=== PATIENT | male | born 1935 | race African-American/Black ===

== ENCOUNTER → 2016-12-27 | Outpatient (CLI) | payer MEDICARE, OTHER ==
[2016-12-27 11:28] LABS: ALBUMIN 3.3 g/dL (3.4-5.0); CALCIUM 8.7 mg/dL (8.5-10.1); CREATININE 1.4 mg/dL (0.7-1.3); GFR 58.6; PHOSPHORUS 3.6 mg/dL (2.6-4.7); POTASSIUM 3.6 mmol/L (3.5-5.1)
[2016-12-27 11:50] LABS: BILIRUBIN,URINE NEG (NEG); CLARITY,URINE CLEAR; COLOR,URINE YELLOW; GLUCOSE,URINE NEG (NEG); NITRITE,URINE NEG (NEG); UROBILINOGEN,URINE 1 mg/dL (0.2 mg/dL)
[2016-12-27 11:51] LABS: BACTERIA,URINE 0 /HPF (0-FEW); SQUAMOUS EPITHELIAL CELL,UR OCC /LPF; WBC,URINE OCC /HPF (0-4)
--- NOTE | 2016-12-27 16:16 | RAD ---
Renal ultrasound 12/27/2016 Clinical history: Abnormal renal function tests. Technique: A real-time ultrasound examination of both kidneys and the urinary bladder was performed. Multiple images were obtained. Findings: Both kidneys are within normal limits in size and echogenicity. The right kidney measures 10.2 cm in length. The left kidney measures 10.1 cm in length. No focal abnormality of either kidney is seen. No renal calculus is noted. There is no evidence of hydronephrosis. The urinary bladder is contracted. The patient voided just prior to the examination. The residual within the urinary bladder is estimated to be 4.7 mL. The prostate gland is enlarged likely related to BPH. It measures 4.9 x 5.7 x 4.9 cm in longitudinal, transverse and AP dimensions. Impression: The prostate gland is enlarged likely related to BPH. Otherwise negative study.
[2016-12-27 23:10] LABS: CREAT RD UR 79.5 mg/dL (Not Estab.); MICRO CREAT RATIO 22.8 mg/g creat (0.0-30.0); MICROALB RD UR 18.1 ug/mL (Not Estab.)
[2016-12-28 10:47] LABS: IRON,SERUM 73 ug/dL (65-175)
== END | disposition home or self-care (01) ==
LOC: US 10:34
PROVIDERS: ATTEND Internal Medicine Nephrology
DX: I10 Essential (primary) hypertension (principal); E11.9 Type 2 diabetes mellitus without complications; N40.0 Benign prostatic hyperplasia without lower urinary tract symptoms; I70.1 Atherosclerosis of renal artery; D64.9 Anemia, unspecified; E86.0 Dehydration; R10.10 Upper abdominal pain, unspecified; R94.4 Abnormal results of kidney function studies; Z68.25 Body mass index [BMI] 25.0-25.9, adult
CPT/HCPCS: 36415; 76770; 80069; 81001; 82043; 82570; 82607; 82728; 83540; 83550

== ENCOUNTER → 2017-11-29 | Outpatient (CLI) | payer OTHER ==
[2017-11-29 10:38] LABS: ALBUMIN 3.1 g/dL (3.4-5.0); ALBUMIN/GLOBULIN RATIO 0.8 (1.0-1.7); CALCIUM 9.1 mg/dL (8.5-10.1); CREATININE 1.3 mg/dL (0.7-1.3); GFR 63.6; POTASSIUM 3.7 mmol/L (3.5-5.1); TOTAL BILIRUBIN 0.6 mg/dL (0.2-1.0)
== END | disposition home or self-care (01) ==
LOC: LAB 09:54
PROVIDERS: ATTEND Internal Medicine Cardiovascular Disease
DX: E78.00 Pure hypercholesterolemia, unspecified (principal)
CPT/HCPCS: 36415; 80053; 80061

== ENCOUNTER → 2018-01-04 | Outpatient (CLI) | payer OTHER ==
--- NOTE | 2018-01-04 14:00 | RAD ---
Nonvascular right upper extremity ultrasound 01/04/2018 Clinical indication: Nonpainful lump posterior right wrist for 2 months. Comparison: None. Findings: Limited real-time grayscale and color Doppler images of the posterior right wrist in the area of palpable concern. There is a thin fluid collection in the deep subcutaneous tissues of the posterior right wrist with internal debris and septations with no evidence of internal vascularity measuring 4.0 x 1.5 x 0.6 cm. There is more focal debris in the dependent portion of the mass with no evidence of internal vascularity. Impression: The area of palpable concern, there is a thin fluid collection with internal debris measuring up to 4.0 cm which appears to be in the deep subcutaneous tissues. Findings may be posttraumatic or post operative fluid collection in the appropriate clinical setting. If further imaging is clinically indicated, MRI without and with contrast is recommended to exclude enhancing nodularity.
== END | disposition home or self-care (01) ==
LOC: US 10:27
PROVIDERS: ATTEND Nurse Practitioner Family
DX: R22.31 Localized swelling, mass and lump, right upper limb (principal); I10 Essential (primary) hypertension; E11.9 Type 2 diabetes mellitus without complications; E78.00 Pure hypercholesterolemia, unspecified
CPT/HCPCS: 76881

== ENCOUNTER 2020-08-02 20:13 | Emergency (ER) | payer MEDICARE, OTHER ==
[~2020-08-02] VITALS: Ht 172.7 cm; Wt 70.0 kg
--- NOTE | 2020-08-02 20:45 | PHYS DOC ---
Adult General Chief Complaint Chief Complaint: ABDOMINAL PAIN HPI HPI Patient is a 78 seizure male patient who complains of abdominal fullness. States he has a history of constipation, has not had a bowel movement for 3 days. States he is having a bit of burning in his rectum, as he has in the past when he has been constipated. States he has not had a lot of fluid intake recently, despite his telling him he needs to stay hydrated.. States he has taken stool softeners in the past, however is not taken any today. Does report a speculum something proximally 3 hours ago bowel movement last has not had any blood. Denies any nausea, denies any vomiting. Denies any prior abdo roshni surgery. Denies any change in urination, however does report he seems to have a little bit less urine compared to normal. States he has had this happen in the past before (GENA CRANDALL APRN) Review of Systems Review of Systems Constitutional: Denies fever or chills [] Eyes: Denies change in visual acuity, redness, or eye pain [] HENT: Denies nasal congestion or sore throat [] Respiratory: Denies cough or shortness of breath [] Cardiovascular: No additional information not addressed in HPI [] GI: Denies abdominal pain, nausea, vomiting, bloody stools or diarrhea does report constipation [] : Denies dysuria or hematuria [] Musculoskeletal: Denies back pain or joint pain [] Integument: Denies rash or skin lesions [] Neurologic: Denies headache, focal weakness or sensory changes [] Endocrine: Denies polyuria or polydipsia [] All other systems were reviewed and found to be within normal limits, except as documented in this note. (GENA CRANDALL APRN) Allergies Allergies Allergies Coded Allergies Type Severity Reaction Last Updated Verified No Known Drug Allergies 08/02/20 No (GENA CRANDALL APRN) Physical Exam Physical Exam Constitutional: Well developed, well nourished, no acute distress, non-toxic appearance. Conversational [] HENT: Normocephalic, atraumatic, no oral exudates, nose normal. [] Eyes: PERRLA, EOMI, conjunctiva normal, no discharge. [] Neck: Normal range of motion, no tenderness, supple, no stridor. [] Cardiovascular:Heart rate regular rhythm, no murmur [] Lungs & Thorax: Bilateral breath sounds clear to auscultation [] Abdomen: Bowel sounds diminishedl, soft, no tenderness, no masses, no pulsatile masses. [] Skin: Warm, dry, no erythema, no rash. [] Back: No tenderness, no CVA tenderness. [] Extremities: No tenderness, no cyanosis, no clubbing, ROM intact, no edema. [] Neurologic: Alert and oriented X 3, normal motor function, normal sensory function, no focal deficits noted. [] Psychologic: Affect normal, judgement normal, mood normal. [] (GENA CRANDALL APRN) EKG EKG [] (GENA CRANDALL APRN) Radiology/Procedures Radiology/Procedures [] (GENA CRANDALL APRN) Impressions: Exam: CT of abdomen and pelvis with contrast INDICATION: Constipation, abdominal pain TECHNIQUE: Sequential axial images through the abdomen and pelvis obtained following the administration of 60 mL of Omni 300 IV contrast. Sagittal and coronal reformatted images were reconstructed from the axial data and reviewed. Comparisons: Acute abdominal series same day FINDINGS: Heart size is normal. No pericardial effusion. Visualized lung bases are clear. No pleural effusion. Liver, spleen, pancreas, gallbladder and adrenals are unremarkable. No perinephric inflammation or hydronephrosis. No renal or ureteral calculi are identified. Bladder is decompressed not well evaluated. Prostate is severely enlarged. Large amount of stool is noted at the rectum. Remainder of the large and small bowel are unremarkable. No obstruction. No free intra-abdominal air or fluid. Abdominal aorta has a normal course and caliber. Abdominal vasculature is patent. No enlarged abdominal lymph nodes are identified. Mildly displaced fracture involving the posterior right 11th rib. No suspicious osseous lesions IMPRESSION: 1. Large amount stool noted in the colon particularly at the rectum, consistent with history of constipation. 2. Mildly displaced fracture at the posterior right 11th rib, which is age indeterminate. Correlate with point tenderness. Exposure: One or more of the following in the visualized dose reduction techniques were utilized for this examination: 1. Automated exposure control 2. Adjustment of the MA and/or KV according to patient size 3. Use of iterative of reconstructive technique Electronically signed by: Julia Miranda MD (08/02/2020 10:49 PM) [id number] DICTATED AND SIGNED BY: JULIA MIRANDA MD DATE: 08/02/20 6901 CC: MAGALY HERRON DO; GENA CRANDALL APRN; JOSETTE SAENZ MD ~ (MAGALY HERRON DO) Heart Score Risk Factors: Risk Factors: DM, Current or recent (<one month) smoker, HTN, HLP, family history of CAD, obesity. Risk Scores: Risk Factors: DM, Current or recent (<one month) smoker, HTN, HLP, family history of CAD, obesity. (GENA CRANDALL APRN) Course & Med Decision Making Course & Med Decision Making Pertinent Labs and Imaging studies reviewed. (See chart for details) []Discussed with patient options for enema consideration to empty stool, patient in agreement with this if needed. Will do CT scan, labs, and fluids and re- evaluate. Patient reports he is feeling a little better while resting, with no further questions. Care Transferred to Dr Herron @ 2200, awaiting labs and imaging. (GENA CRANDALL APRN) Course & Med Decision Making I discussed the patient's constipation with him. He would like to go ahead and attempt an enema here in the emergency room. We did a saline enema with some results. I believe the patient needs to drink more water in general. I have also advised that he take 1-3x dose MiraLAX for the next couple of days. He is stable for discharge at this time. (MAGALY HERRON DO) Dragon Disclaimer Dragon Disclaimer This electronic medical record was generated, in whole or in part, using a voice recognition dictation system. (GENA CRANDALL APRN) Departure Departure: Impression: Primary Impression: Constipation by delayed colonic transit Disposition: 01 DC HOME SELF CARE/HOMELESS Condition: STABLE Referrals: JOSETTE SAENZ MD (PCP) Patient Instructions: Constipation, Adult, [id number] Additional Instructions: You should try taking double or even triple dose MiraLAX for the next 2 days. You should have several bowel movements per day to get your bowels cleaned out. You can then go back to your normal regimen. If you do not have a bowel movement at least every other day, you should take MiraLAX daily. It would be best to have an easy bowel movement daily or twice a day. GENA CRANDALL APRN Aug 02, 2020 20:45 MAGALY HERRON DO Aug 02, 2020 23:17
--- NOTE | 2020-08-02 21:17 | RAD ---
Exam: Acute abdominal series INDICATION: Abdominal pain, constipation TECHNIQUE: Frontal view of the chest with upright and supine views of the abdomen Comparisons: None FINDINGS: The cardiomediastinal silhouette and pulmonary vessels are within normal limits. Subtle patchy airspace disease at the lung bases. No pleural effusion. Air and stool are noted throughout the colon to level the rectum in a nonobstructive bowel gas pattern. No suspicious masses or calcifications. Visualized osseous structures are unremarkable. IMPRESSION: 1. Subtle patchy airspace disease at the lung bases. 2. Nonobstructive bowel gas pattern. Moderate amount of stool noted at the rectum. Electronically signed by: Julia Arechiga MD (08/02/2020 9:14 PM) [id number]
[2020-08-02] MEDS ORDERED: IOHEXOL 300 MG/ML 75 ML VIAL. IV ONE (21:45)
[2020-08-02] MEDS ORDERED: CONTRAST GIVEN. MC PRN (21:45)
[2020-08-02 21:57] VITALS: BP 146/93
[2020-08-02 22:01] LABS: BASO % 1 % (0-3); EOS # 0.1 x10^3/uL (0.0-0.7); EOS % 1 % (0-3); HEMATOCRIT 40.3 % (39.0-53.0); LYMPH # 1.4 x10^3/uL (1.0-4.8); LYMPH % 17 % (24-48); MEAN CORPUSCULAR HEMOGLOBIN 29 pg (25-35); MEAN CORPUSCULAR HGB CONC 32 g/dL (31-37); MEAN CORPUSCULAR VOLUME 89 fL (79-100); MONO # 0.5 x10^3/uL (0.0-1.1); MONO % 6 % (0-9); NEUT # 6.3 x10^3uL (1.8-7.7); NEUT % 76 % (31-73); PLATELET COUNT 189 x10^3/uL (140-400); RED BLOOD COUNT 4.52 x10^6/uL (4.30-5.70); RED CELL DISTRIBUTION WIDTH 15.3 % (11.5-14.5); WHITE BLOOD COUNT 8.3 x10^3/uL (4.0-11.0)
[2020-08-02 22:03] LABS: CALCIUM 8.8 mg/dL (8.5-10.1); CREATININE 1.5 mg/dL (0.7-1.3); GFR 53.7; POTASSIUM 4.4 mmol/L (3.5-5.1)
[2020-08-02 22:09] LABS: ALBUMIN 3.2 g/dL (3.4-5.0); ALBUMIN/GLOBULIN RATIO 0.8 (1.0-1.7); TOTAL BILIRUBIN 0.5 mg/dL (0.2-1.0); TOTAL PROTEIN 7.2 g/dL (6.4-8.2)
[2020-08-02] MEDS ORDERED: IV NORMAL SALINE 1,000ML 1,000 ML IV ONE (22:15)
[2020-08-02] MEDS ORDERED: SODIUM PHOSPHATES 19/7GM 133 ML ENEMA. ONE (22:46)
--- NOTE | 2020-08-02 22:52 | RAD ---
Exam: CT of abdomen and pelvis with contrast INDICATION: Constipation, abdominal pain TECHNIQUE: Sequential axial images through the abdomen and pelvis obtained following the administration of 60 mL of Omni 300 IV contrast. Sagittal and coronal reformatted images were reconstructed from the axial data and reviewed. Comparisons: Acute abdominal series same day FINDINGS: Heart size is normal. No pericardial effusion. Visualized lung bases are clear. No pleural effusion. Liver, spleen, pancreas, gallbladder and adrenals are unremarkable. No perinephric inflammation or hydronephrosis. No renal or ureteral calculi are identified. Bladder is decompressed not well evaluated. Prostate is severely enlarged. Large amount of stool is noted at the rectum. Remainder of the large and small bowel are unremarkable. No obstruction. No free intra-abdominal air or fluid. Abdominal aorta has a normal course and caliber. Abdominal vasculature is patent. No enlarged abdominal lymph nodes are identified. Mildly displaced fracture involving the posterior right 11th rib. No suspicious osseous lesions IMPRESSION: 1. Large amount stool noted in the colon particularly at the rectum, consistent with history of constipation. 2. Mildly displaced fracture at the posterior right 11th rib, which is age indeterminate. Correlate with point tenderness. Exposure: One or more of the following in the visualized dose reduction techniques were utilized for this examination: 1. Automated exposure control 2. Adjustment of the MA and/or KV according to patient size 3. Use of iterative of reconstructive technique Electronically signed by: Julia Arechiga MD (08/02/2020 10:49 PM) [id number]
[2020-08-02] MEDS ORDERED: MINERAL OIL 133 ML ENEMA. PR ONE (23:15)
[2020-08-02 23:17] LABS: BILIRUBIN,URINE NEG (NEG); CLARITY,URINE CLEAR; COLOR,URINE YELLOW; GLUCOSE,URINE 500 mg/dL (NEG)
[2020-08-02 23:18] LABS: BACTERIA,URINE FEW /HPF (0-FEW); NITRITE,URINE NEG (NEG); RBC,URINE 0 /HPF (0-2); SPERM,URINE PRESENT /HPF; SQUAMOUS EPITHELIAL CELL,UR OCC /LPF; WBC,URINE 0 /HPF (0-4)
== END 2020-08-02 23:36 | disposition home or self-care (01) ==
LOC: ER 20:13
DX: K59.01 Slow transit constipation (principal)
CPT/HCPCS: 36415; 74022; 74177; 80053; 81001; 84484; 85025; 96360; 99285; J7030; Q9967